=== PATIENT | female | born 1965 | race Two or more races ===

== ENCOUNTER 2025-05-17 18:53 | Emergency (ER) | payer MEDICARE, SELFPAY ==
[2025-05-17 19:13] VITALS: BP 201/100
[2025-05-17 19:38] LABS: Hematocrit 38.9 % (37.0-47.0); Hemoglobin 13.2 g/dL (12.0-16.0); Mean Corp Hgb Conc. 33.9 g/dL (33.0-37.0); Mean Corpuscular Volume 86.6 fL (81.0-99.0); Nucleated Red Blood Cells % 0 %; Platelet Count 321 10^3/uL (130-400); Red Cell Dist. Width 12.0 % (11.5-14.5)
[2025-05-17 20:05] LABS: ALT (SGPT) 25 U/L (0-35); AST (SGOT) 25 U/L (14-36); Albumin 4.5 g/dl (3.5-5.0); Alkaline Phosphatase 103 U/L (38-126); Blood Urea Nitrogen 27 mg/dl (7-17); Calcium 9.5 mg/dl (8.4-10.2); Carbon Dioxide 22 mmol/L (22-30); Chloride 95 mmol/L (98-107); Glucose 210 mg/dl (70-99); Potassium 4.8 mmol/L (3.5-5.1); Sodium 127 mmol/L (135-145); Total Protein 7.5 g/dl (6.3-8.2); eGFR > 60.00
[2025-05-17 20:14] LABS: Troponin I 0.020 ng/ml
[2025-05-17 22:54] VITALS: BP 192/83
[2025-05-17 23:00] VITALS: BP 153/70
[2025-05-17 23:14] VITALS: BMI 35.5
[2025-05-18] VITALS: BP 145/63
[2025-05-18 01:03] VITALS: BP 171/105
[2025-05-18 01:03] LABS: Glucose - Point of Care 310 mg/dl (70-99)
[2025-05-18 02:00] VITALS: BP 166/89
--- NOTE | 2025-05-18 02:27 | ED.GENMED ---
History of Present Illness
<Katrina Vera PA-C - Last Filed: 05/18/25 08:24>
General
Chief Complaint: Chest Pain
Source: patient
Exam Limitations: none
Time Seen by Provider: 05/18/25 02:21
Nursing documentation reviewed up to this point in time: agreed with
History of Present Illness
History of Present Illness:
5-year-old female with past medical history of coronary artery disease with cardiac stenting, hypertension, hyperlipidemia, insulin-dependent diabetes, who presents to the ER today with concerns of substernal squeezing chest pain, nausea, and right
arm pain. It has been going on intermittently for the past few weeks but today became more distant. She reports that she is disabled and does not work and does not ambulate much and does not particularly notice worsening pain with ambulation. She
denies any fevers or chills. She denies any coughing or flulike symptoms. 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 She does not have any shortness of breath. She took an aspirin a few hours ago. She reports that she is
supposed to be taking cholesterol medication as her cholesterol LDL and triglycerides are very high but patient is concerned about the side effects of these medications so she been taking it.
Past History
<Katrina Vera PA-C - Last Filed: 05/18/25 08:24>
Past History
ED Past Medical History: Cancer (Thyroid), HTN, Hypercholesterolemia, IDDM, Hypothyroidism, Psychiatric and Other (Chronic pancreatitis, neuropathy)
ED Past Surgical History: Other (Thyroidectomy)
Social History
Tobacco: Smoker
Drug: Former user
Living: with family
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
Family History
Family History: Hypertension
Review of Systems
<Katrina Vera PA-C - Last Filed: 05/18/25 08:24>
Review of Systems
All Other Systems: ROS reviewed and negative except as documented in HPI and ROS
Phy Exam
<Katrina Vera PA-C - Last Filed: 05/18/25 08:24>
Physical Exam
Physical Exam:
General: Patient is well appearing and in no acute distress; non-toxic
Skin: Warm and dry, no rashes or lesions
Head: Normocephalic, atraumatic
Eyes: Sclera non-icteric. EOMs intact.
Cardiac: Regular rate and rhythm, no murmurs
Peripheral Vascular: No lower extremity swelling or edema
Pulm: Normal respiratory effort, no wheezes, rales, rhonchi
Abdomen: No abdominal tenderness to palpation
Neuro: CN II-XII intact, no focal neurologic deficits.
Psychiatric: Appropriate mood and affect.
Scores
<Katrina Vera PA-C - Last Filed: 05/18/25 08:24>
Heart Score for Chest Pain Patients
STEMI patient?: No
History: Moderately Suspicious
ECG: Nonspecific Repolarization
Age: >45 - <65 years
Risk Factors: >/= 3 Risk Factors or History of CAD
Troponin: </= Normal Limit
Heart Score for Chest Pain Patients: 5
Heart Score Risk: 20.3% MACE over next 6 weeks
Course
<KB Voss Last Filed: 05/18/25 08:24>
Orders/Labs/Results
Orders:
Orders
05/17/25 18:53
EKG [Electrocardiogram (*1)] Urgent
Reason for Study: Chest Pain
05/17/25 18:54
EKG- Treatment ONCE
05/17/25 19:18
EKG [Electrocardiogram (*1)] Urgent
Reason for Study: Chest Pain
05/17/25 19:19
EKG- Treatment ONCE
05/17/25 19:23
Complete Blood Count/With Diff Urgent
Comprehensive Metabolic Panel Urgent
Troponin I Urgent
05/18/25 02:25
Troponin I Urgent
05/18/25 02:46
Aspirin Chewable [Low Strength Aspirin] 324 mg PO NOW STA
Nitroglycerin Sublingual [Nitrostat (Sublingual)] 0.4 mg SL NOW STA
05/18/25 02:50
0.9% Sodium Chloride 500 ml [Nss] 500 ml IV BOLUS
05/18/25 02:51
Insulin Human Regular [Novolin R] 5 units SC NOW STA
Abnormal Lab Results
05/17/25 05/18/25
19:23 01:02
Abs Immat Gran (auto) 0.1 H 10^3/uL
(0-0.05)
Absolute Monos (auto) 0.9 H 10^3/uL
(0.1-0.6)
Immature Gran % 0.8 H %
(0-0.5)
Sodium 127 L mmol/L
(135-145)
Chloride 95 L mmol/L
(98-107)
BUN 27 H mg/dl
(7-17)
Glucose 210 H mg/dl
(70-99)
POC Glucose 310 H mg/dl
(70-99)
05/17/25 19:23
05/17/25 19:23
Vital Signs
Initial and Last Documented VS:
Initial Vital Signs
Temp Pulse Resp BP Pulse Ox
98.1 F 70 20 201/100 99
05/17/25 19:13 05/17/25 19:13 05/17/25 19:13 05/17/25 19:13 05/17/25 19:13
Last Documented Vital Signs
Temp Pulse Resp BP Pulse Ox
98.1 F 80 25 182/88 98
05/17/25 19:13 05/18/25 03:00 05/18/25 03:00 05/18/25 02:58 05/18/25 03:00
<Sebastian Sheth, DO - Last Filed: 05/18/25 03:38>
Orders/Labs/Results
Orders:
Orders
05/17/25 18:53
EKG [Electrocardiogram (*1)] Urgent
Reason for Study: Chest Pain
05/17/25 18:54
EKG- Treatment ONCE
05/17/25 19:18
EKG [Electrocardiogram (*1)] Urgent
Reason for Study: Chest Pain
05/17/25 19:19
EKG- Treatment ONCE
05/17/25 19:23
Complete Blood Count/With Diff Urgent
Comprehensive Metabolic Panel Urgent
Troponin I Urgent
05/18/25 02:25
Troponin I Urgent
05/18/25 02:46
Aspirin Chewable [Low Strength Aspirin] 324 mg PO NOW STA
Nitroglycerin Sublingual [Nitrostat (Sublingual)] 0.4 mg SL NOW STA
05/18/25 02:50
0.9% Sodium Chloride 500 ml [Nss] 500 ml IV BOLUS
05/18/25 02:51
Insulin Human Regular [Novolin R] 5 units SC NOW STA
Abnormal Lab Results
05/17/25 05/18/25
19:23 01:02
Abs Immat Gran (auto) 0.1 H 10^3/uL
(0-0.05)
Absolute Monos (auto) 0.9 H 10^3/uL
(0.1-0.6)
Immature Gran % 0.8 H %
(0-0.5)
Sodium 127 L mmol/L
(135-145)
Chloride 95 L mmol/L
(98-107)
BUN 27 H mg/dl
(7-17)
Glucose 210 H mg/dl
(70-99)
POC Glucose 310 H mg/dl
(70-99)
05/17/25 19:23
05/17/25 19:23
Vital Signs
Initial and Last Documented VS:
Initial Vital Signs
Temp Pulse Resp BP Pulse Ox
98.1 F 70 20 201/100 99
05/17/25 19:13 05/17/25 19:13 05/17/25 19:13 05/17/25 19:13 05/17/25 19:13
Last Documented Vital Signs
Temp Pulse Resp BP Pulse Ox
98.1 F 80 25 182/88 98
05/17/25 19:13 05/18/25 03:00 05/18/25 03:00 05/18/25 02:58 05/18/25 03:00
Jitendralt;Katrina Vera PA-C - Last Filed: 05/18/25 08:24>
MDM/Problems Addressed
Differential Diagnosis Includes:
ACS, pneumothorax, PE, pericarditis, GERD
MDM/Problems Addressed:
59-year-old female presents to ER today with concerns of substernal squeezing chest pain and nausea. She does have a significant history of coronary artery disease and had stents placed in the past. She had an initial ECG revealing normal sinus
rhythm with nonspecific ST changes. Her repeat ECG shows no changes from the 1 done a few hours prior. Initial troponin was 0.020. On my exam she is well-appearing no acute distress but the pain is still present and persistent. I ordered
chewable aspirin and nitroglycerin for her. I recommended chest x-ray for further evaluation and recommended considering her pain history, and that she should likely stay for continued trending of troponins and cardiac evaluation.
I was notified by nursing staff the patient wants to leave. Patient reports that she was going to be taken to x-ray and then she expressed sentiment that she is waiting too long and she is frustrated. I went to go back to talk to the patient and
she reports that she wants to go home and she is refusing a repeat troponin. She feels chest pain. I had a thorough and long discussion with patient that just because the initial ECG and troponin were okay, you can still have an acute coronary
syndrome and I was expressing to her that I was very concerned about the possibility of this in this patient considering she is high risk. Patient reports that 'you are not a lpn rn 'and I described to her that there is significant risk in
her leaving, including myocardial infarction and potentially even if her chest pain is left untreated. She reported that 'it is my responsibility'and she requested AMA paperwork. She reports that she will follow-up with her primary care
provider. I did have her sign AMA paperwork. She reported that she understood the risk. I notified my attending who also had a thorough discussion with her and patient is still refusing and is walking out of the emergency department. I told he to
retur immeadiatley should she change her mind.
Chronic conditions affecting care:
Coronary artery disease, hypertension, hyperlipidemia
Acute Exacerbation and/or Progression of Chronic Illness:
Coronary artery disease
<Katrina Vera PA-C - Last Filed: 05/18/25 08:24>
*Pulse Oximetry
SaO2: 96
Oxygen Mode of Delivery: Room air
Patient hypoxic: no
*Critical Care Note
Total Time (30-74mins, 75-104mins- exclusive of procedures): Not Applicable
Data Reviewed
Review of Other/Old Records Reveals: Records (Reviewed ER physician documentation from 03/06/2023, patient seen for headache, reviewed ER physician documentation from 04/24/2020 patient seen for abdominal pain)
Source: patient and records
<Katrina Vera PA-C - Last Filed: 05/18/25 08:24>
Patient Management
Escalation/DeEscalation of care consider admission/obs:
Further evaluation is recommended and patient is leaving against our medical advice
ED Attending Note
<Katrina Vera PA-C - Last Filed: 05/18/25 08:24>
-
Portions of this chart may have been created with voice recognition software.� Occasional wrong word or��sound alike� substitutions may have occurred due to the inherent limitations of voice recognition software.
<Sebastian Sheth DO - Last Filed: 05/18/25 03:38>
ED Attending Note
Patient seen and examined by attending physician: Yes
I performed the substantive portion of visit, reviewed & personally made and approve the management plan that is documented in note by myself or CALIN.: Yes
ED Attending Note:
59-year-old female that presents with chest pain nausea and right arm pain that has been present for the last few weeks. Patient was seen in conjunction with the PA. I reviewed and agree with her history and treatment plan. Case was presented to
me as she was going to be admitted for continued chest pain. Shortly after the case was presented to me for admission, patient stated that she no longer wanted to be admitted. The PA had patient signed an AMA form. I went back to see the patient.
She was already dressed and walking towards the emergency department. She would not talk to me. She stated that this whole process 'took too long, and she was going to another hospital where her son works in the cardiology department '. I tried
to explain to her that continued chest pain was concerning to me. I also explained that the hospital was extremely busy but we needed time between the 1st and 2nd troponin tests. Patient refused the second troponin and she stated that she no
longer wanted to be here. She stated that she would call her family doctor in the morning and go to the outside hospital. I stated that I was very concerned for her wellbeing. She stated that she no longer wanted to stay. I feel that patient had
good decision-making capability. Though I disagreed with her decision, was her choice to leave. Patient leaving AGAINST MEDICAL ADVICE. I did verbalize to patient that she can return at any time I encouraged her to do so. Patient continuing to
walk stating that she was 'done talking to me'.
Discharge Plan
Departure
Patient Disposition: Against Medical Advice
Date of Disposition: 05/18/25
Time of Disposition: 05:03
Discharge Problem:
Chest pain
Prescriptions:
No Action
levothyroxine 175 MCG tablet
175 mcg PO DAILY
insulin aspart U-100 100 UNIT/ML solution
1 ' SC DIRECTED
gabapentin 300 MG capsule
300 mg PO DIRECTED
Patient Comments:
1 tablet morning, 1 tablet noon and 3 tablet bedtime
lisinopril-hydrochlorothiazide 1 EACH tablet
1 ea PO DAILY
sertraline 50 MG tablet
50 mg PO BID
gjhlcf-[id number] (pork) [Creon] 1 EACH capsule,delayed release(DR/EC)
1 ea PO TID
Drotaverine
40 mg PO TID
Levemir Flexpen:
1 ' SC DIRECTED
Valerian Root
20 mg PO BID
ondansetron 4 MG tablet,disintegrating
4 mg PO TIDPRN PRN (Reason: nausea/vomiting) Qty: 10 0RF
omeprazole magnesium [Prilosec OTC] 20 MG tablet,delayed release (DR/EC)
20 mg PO DAILY Qty: 20 0RF
Referrals:
Davide Perea MD [Family Provider, Internal Medicine]
Interventions
Interventions:
*General Assessment Last Done: 05/17/25 19:13
*Neglect/Abuse Screening Last Done: 05/17/25 19:13
*ED COVID-19 Vaccine History Last Done: 05/17/25 19:13
*ED Influenza Vaccine History Last Done: 05/17/25 19:13
[facility] Fall Risk Assessment Tool Last Done: 05/17/25 23:14
*Risk Screen - Suicide (C-SSRS) Last Done: 05/17/25 19:13
*Nursing Disposition Last Done: 05/18/25 04:19
ED- Cardiac Assessment Last Done: 05/17/25 23:30
Discharge Date and Time
Discharge Date/Time: 05/18/25 03:30
Print Language: THAI
[2025-05-18] MEDS: LOW STRENGTH ASPIRIN 324 MG PO (02:57)
[2025-05-18 02:58] VITALS: BP 182/88
[2025-05-18] MEDS: NITROSTAT (SUBLINGUAL) 0.4 MG SL (02:58)
== END 2025-05-18 03:30 | disposition left against medical advice (07) ==
LOC: EMR 18:53
PROVIDERS: Emergency Medicine; EMERGENCY PHYSICIAN Student in an Organized Health Care Education/Training Program; FAMILY PHYSICIAN Internal Medicine
DX: R07.9 Chest pain, unspecified (principal); E10.40 Type 1 diabetes mellitus with diabetic neuropathy, unspecified; I25.10 Atherosclerotic heart disease of native coronary artery without angina pectoris; I10 Essential (primary) hypertension; E78.00 Pure hypercholesterolemia, unspecified; E89.0 Postprocedural hypothyroidism; K86.1 Other chronic pancreatitis; K86.81 Exocrine pancreatic insufficiency; F17.200 Nicotine dependence, unspecified, uncomplicated; Z79.4 Long term (current) use of insulin; Z95.5 Presence of coronary angioplasty implant and graft; Z85.850 Personal history of malignant neoplasm of thyroid; Z82.49 Family history of ischemic heart disease and other diseases of the circulatory system
CPT/HCPCS: 99284; 80053; 82962; 84484; 85025; 93005